=== PATIENT | male | born 1955 | race Hispanic/Latino ===

== ENCOUNTER 2018-07-11 09:15 | Day surgery (SDC) | payer BC ==
[2018-06-30 10:47] VITALS: BMI 35.9
[2018-07-11] MEDS ORDERED: Propofol 10 mg/ml Inj (20 ML) ONE ×3 (12:35→13:33)
[2018-07-11] MEDS ORDERED: Sodium Chloride 0.9% 1,000 ML IV SCH (12:45)
[2018-07-11] MEDS ORDERED: Glucagon Recombinant 1 mg Inj ONE (13:15)
[2018-07-11 14:04] VITALS: RESP 12; TEMP 98
[2018-07-11 14:16] VITALS: BP 129/80; PULSE 76; O2SAT 99
== END 2018-07-11 15:14 | disposition home or self-care (01) ==
LOC: ENDO 09:15
PROVIDERS: ATTEND Internal Medicine Gastroenterology
DX: K22.70 Barrett's esophagus without dysplasia (principal); K44.9 Diaphragmatic hernia without obstruction or gangrene; I85.00 Esophageal varices without bleeding; K31.7 Polyp of stomach and duodenum
CPT/HCPCS: 43236; J1610; J2001; J2704; J7030

== ENCOUNTER 2018-08-15 07:41 | Day surgery (SDC) | payer BC ==
[2018-08-10 16:17] VITALS: BMI 35.2
[2018-08-15 08:23] LABS: BASO # 0.02 K/mm3 (0.0-2.0); BASO % 0.4 % (0.0-3.0); EOS # 0.1 (0.0-0.7); EOS % 2.5 % (1.5-5.0); HEMOGLOBIN 14.3 g/dL (14.0-18.0); LYMPH # 1.7 (1.2-3.4); LYMPH % 30.4 % (22.0-35.0); MEAN CELL VOLUME 88.9 fl (80.0-105.0); MEAN CORPUSCULAR HEMOGLOBIN 29.3 pg (25.0-35.0); MEAN CORPUSCULAR HGB CONC 32.9 g/dl (31.0-37.0); MEAN PLATELET VOLUME 8.4 fl (7.0-11.0); MONO # 0.4 (0.1-0.6); RBC 4.88 10^6/uL (3.5-6.1); RED CELL DISTRIBUTION WIDTH 13.3 % (11.5-14.5); WHITE BLOOD COUNT 5.5 10^3/uL (4.5-11.0)
[2018-08-15 08:33] LABS: INR 1.02; PARTIAL THROMBOPLASTIN TIME 31.7 Seconds (26.9-38.3); PROTHROMBIN TIME 11.5 SECONDS (9.4-12.5)
[2018-08-15 08:38] LABS: BLOOD UREA NITROGEN 14 mg/dL (7-21); CALCIUM 9.1 mg/dL (8.4-10.5); GFR NON-AFRICAN AMERICAN > 60
[2018-08-15 08:40] VITALS: RESP 18
[2018-08-15] MEDS ORDERED: Midazolam 2 MG/2 ML VIAL ONE (09:40)
[2018-08-15] MEDS ORDERED: Midazolam 2 MG/2 ML VIAL IVP ONE (09:48)
[2018-08-15] MEDS ORDERED: Sodium Chloride 0.45% 1,000 ML IV SCH (10:15)
[2018-08-15 10:33] VITALS: O2SAT 98
[2018-08-15 11:05] VITALS: TEMP 97.3
[2018-08-15 12:07] VITALS: BP 144/85; PULSE 66
--- NOTE | 2018-08-15 17:42 | CT ---
PROCEDURE: CT guided liver biopsy. HISTORY: CROWDER. Varices. Evaluate for cirrhosis PHYSICIAN(S): Gamal Barbour MD. TECHNIQUE: The relative risks and indications of the procedure were explained to the patient and consent obtained. The patient was placed supine on the CT scanner and preliminary images through the liver obtained. Conscious sedation and monitoring were provided throughout the procedure by a nurse. The visualized portions of the liver are normal on the non contrast images. A subxyphoid approach was selected and the area prepped and draped in the usual sterile fashion. 1% Xylocaine was used to anesthetize the skin and soft tissues. A 17-gauge guiding needle was advanced into the lateral segment of the left lobe of the liver. Its position was confirmed with CT. Using coaxial technique, multiple core biopsies were obtained. The postprocedure images show no evidence of significant hemorrhage. IMPRESSION: 1. CT-guided liver biopsy as described above.
== END 2018-08-15 12:35 | disposition home or self-care (01) ==
LOC: SDS 07:41
PROVIDERS: ATTEND Radiology Vascular & Interventional Radiology
DX: K75.81 Nonalcoholic steatohepatitis (NASH) (principal); E66.9 Obesity, unspecified; F10.10 Alcohol abuse, uncomplicated; G47.33 Obstructive sleep apnea (adult) (pediatric); E78.00 Pure hypercholesterolemia, unspecified; Z68.35 Body mass index [BMI] 35.0-35.9, adult
CPT/HCPCS: 36415; 47000; 77012; 80048; 85025; 85610; 85730; 88307; 88313; J2250; J2405; J3010; J7030